=== PATIENT | female | born 1990 | race Hispanic/Latino ===

== ENCOUNTER 2017-09-03 19:20 | Emergency (ER) | payer BC, MEDICAID ==
[2017-09-03 19:37] VITALS: O2SAT 98
[2017-09-03] MEDS ORDERED: Dextrose 50% SYRINGE Inj (50 ml) ONE (19:41)
[2017-09-03] MEDS ORDERED: Dextrose 50% SYRINGE Inj (50 ml) IVP STA (19:48)
--- NOTE | 2017-09-03 19:51 | C.PDOC ---
History Of Present Illness 27 y/o female hx of seizure disorder presents to the ED c/o nausea, vomiting, diarrhea, since this morning. The patient states that "I drank a lot of alcohol last night".The patient had multiple clear vomiting,three episodes of watery bowel movements, and abdominal cramping. The patient notes having an aura concerned for breakthrough symptom. The patient has been complaint with seizure medications. The patient denies fever. NVD SINCE THIS MORNING. PS DRANK "ALOT" OF ALCOHOL LAST NIGHT. MULT CLEAR EMESIS , 3 EPISODES WATERY BM. +ABD CRAMPING. NO FEVER. PS HO SZ DO, FEELING AURA CONCERNED FOR BREAKTHROUGH SX. COMPLIANT W SZ MEDS. EXAM MILD DIST NONTOXIC HEENT ANICTERIC ABD SOFT NO R/G POOR TURGOR PSYCH CALM COOPERATIVE NO ACUTE INTOX NEURO INTACT AO3 NO FOCAL DEF REMAINDER NEG Time Seen by Provider: 09/03/17 19:35 Chief Complaint (Nursing): Medical Clearance History Per: Patient History/Exam Limitations: no limitations Onset/Duration Of Symptoms: Hrs Current Symptoms Are (Timing): Still Present Past Medical History Reviewed: Historical Data, Nursing Documentation, Vital Signs Vital Signs: Last Vital Signs Temp 98.0 F 09/03/17 19:34 Pulse 88 09/03/17 19:34 Resp 18 09/03/17 19:34 BP 106/66 09/03/17 19:34 Pulse Ox 98 09/03/17 23:44 - Medical History PMH: Seizures Surgical History: No Surg Hx Family History: States: Unknown Family Hx - Social History Hx Alcohol Use: Yes Hx Substance Use: No Review Of Systems Except As Marked, All Systems Reviewed And Found Negative. Constitutional: Negative for: Fever Cardiovascular: Negative for: Chest Pain Respiratory: Negative for: Cough, Shortness of Breath Gastrointestinal: Positive for: Nausea, Vomiting (multiple and clear ), Abdominal Pain (cramping), Diarrhea (3 episodes) Physical Exam - Physical Exam Appears: Non-toxic, Other (mild discomfort) Skin: Warm, Dry, Other (poor turgor) Head: Atraumatic, Normacephalic Eye(s): bilateral: Other (Anicteric ) Oral Mucosa: Moist Lips: Normal Appearing Neck: Supple Chest: Symmetrical Cardiovascular: Rhythm Regular Gastrointestinal/Abdominal: Soft, No Tenderness, No Guarding, No Rebound Extremity: Normal ROM, Capillary Refill (<2sec.) Neurological/Psych: Oriented x3, Normal Speech, Normal Cognition, Other (calm cooperative no acute intoxication and no focal deficits ) Gait: Steady ED Course And Treatment - Laboratory Results Result Diagrams: 09/03/17 19:50 09/03/17 19:50 Urine POC: Negative O2 Sat by Pulse Oximetry: 98 (RA) Progress Note: The patient was administered Blood Work, Zofran injection 4mg IVP once, Sodium Chloride 0.9% 1,500ml IV Supplies (Empties IV bag), Dextrose 50 % injection, 50 ml IVP, Dicyclomine (Bentyl), and POC Urine test STAT. The results for the exams are unremarkable. The patient is resting comfortably. The patient no longer feels abdominal cramping, nausea, and vomting. Upon reassessment, the patient is aferbrile and PO tolerant. The patient is advised to have a 1-2 day follow up with her PMD for further evaluation. Progress - Re-Evaluation Re-evaluation Note: 09/03/17 21:58 FEELS BETTER. TOLERATING PO WO DIFF. PT WISHES DC HOME 09/03/17 22:09 CALLED TO BEDSIDE BY RN, S/P BREAKTHROUGH SZ <1 MIN. VSS PT POSTICTAL. ATIVAN, REGLAN GIVEN 09/03/17 22:21 IMPROVED ALERTNESS BUT STILL PERSIST POSTICTAL STATE. VSS 09/04/17 00:00 PERSIST MILD CONFUSION, DOESNT REMEMBER HAVING SZ. - Data Reviewed Data Reviewed: Lab, Old records - Critical Care Citical Care: Excluding Proc Time Critical Care Time: 120 minutes Disposition Counseled Patient/Family Regarding: Studies Performed, Diagnosis, Need For Followup, Rx Given - Disposition Referrals: YOUR,PMD [Other] Disposition Time: 00:00 Condition: STABLE Prescriptions: Ondansetron [Zofran Odt] 4 mg PO TID PRN #9 odt PRN Reason: Nausea/Vomiting Instructions: Acute Nausea and Vomiting (ED) Forms: [facility] (Georgian) - Clinical Impression Clinical Impression: Breakthrough seizure, Vomiting - Scribe Statement The provider has reviewed the documentation as recorded by the Kuldeepibalbino Veras All medical record entries made by the Scribe were at my direction and personally dictated by me. I have reviewed the chart and agree that the record accurately reflects my personal performance of the history, physical exam, medical decision making, and the department course for this patient. I have also personally directed, reviewed, and agree with the discharge instructions and disposition. Physician Patient Turnover Patient Signed Over To: Néstor James Handoff Comments: CARMEN REEVAL, DISPO
[2017-09-03] MEDS ORDERED: Sodium Chloride 0.9% 500 ML IV ONE (19:59)
[2017-09-03] MEDS ORDERED: Sodium Chloride 0.9% 1,000 ML ONE (19:59)
[2017-09-03 20:03] LABS: BASO % 0.2 % (0.0-2.0); HEMATOCRIT 43.1 % (34.0-47.0); LYMPH # 0.6 K/uL (1.0-4.3); LYMPH % 4.3 % (20.0-40.0); MEAN CELL VOLUME 90.6 fL (81.0-99.0); MEAN CORPUSCULAR HEMOGLOBIN 30.2 pg (27.0-31.0); MEAN CORPUSCULAR HGB CONC 33.3 g/dL (33.0-37.0); MEAN PLATELET VOLUME 8.1 fL (7.2-11.7); MONO # 0.3 K/uL (0.0-0.8); MONO % 1.9 % (0.0-10.0); PLATELET COUNT 244 K/uL (130-400); RED CELL DISTRIBUTION WIDTH 12.2 % (11.5-14.5); WHITE BLOOD COUNT 12.9 K/uL (4.8-10.8)
[2017-09-03 20:13] LABS: CHLORIDE 102 mmol/L (98-107); POTASSIUM 3.9 mmol/L (3.6-5.2); SODIUM 139 mmol/L (132-148)
[2017-09-03 20:15] LABS: GFR AFRICAN-AMERICAN > 60
[2017-09-03 20:16] LABS: ALB/GLOB RATIO 1.2 (1.0-2.1); ALKALINE PHOSPHATASE 86 U/L (38-126); ALT/SGPT 40 U/L (9-52); AST/SGOT 38 U/L (14-36); BILIRUBIN,TOTAL 0.8 mg/dL (0.2-1.3); BLOOD UREA NITROGEN 16 mg/dL (7-17); CALCIUM 9.8 mg/dl (8.6-10.4); CARBON DIOXIDE 20 mmol/L (22-30); GLUCOSE,RANDOM 66 mg/dL (65-105); TOTAL PROTEIN 8.8 g/dL (6.3-8.3)
[2017-09-03 20:17] LABS: ALCOHOL SERUM < 10 mg/dl (0-10)
[2017-09-03 21:27] LABS: NEUTROPHIL 94 % (50-75); TOTAL CELLS COUNTED 100
[2017-09-03 23:57] VITALS: BP 103/51; PULSE 99; RESP 17; TEMP 98
== END 2017-09-04 00:25 | disposition home or self-care (01) ==
LOC: C.ER 19:20
DX: G40.909 Epilepsy, unspecified, not intractable, without status epilepticus (principal); R11.10 Vomiting, unspecified
CPT/HCPCS: 80053; 80320; 82948; 85025; 96361; 96372; 96374; 96375; 99291; 99292; J0500; J2060; J2405; J2765; J7040

== ENCOUNTER 2017-12-05 22:25 | Emergency (ER) | payer MEDICAID ==
[2017-12-05 23:12] LABS: BASO % 0.4 % (0.0-2.0); EOS # 0.4 K/uL (0.0-0.7); EOS % 6.5 % (0.0-4.0); LYMPH # 1.5 K/uL (1.0-4.3); LYMPH % 22.2 % (20.0-40.0); MEAN CELL VOLUME 92.2 fL (81.0-99.0); MEAN CORPUSCULAR HEMOGLOBIN 31.2 pg (27.0-31.0); MEAN CORPUSCULAR HGB CONC 33.8 g/dL (33.0-37.0); MONO # 0.5 K/uL (0.0-0.8); NEUT # 4.2 K/uL (1.8-7.0); NEUT % 62.9 % (50.0-75.0); RBC 3.86 Mil/uL (3.80-5.20); RED CELL DISTRIBUTION WIDTH 13.2 % (11.5-14.5); WHITE BLOOD COUNT 6.8 K/uL (4.8-10.8)
[2017-12-05 23:26] LABS: ALB/GLOB RATIO 1.4 (1.0-2.1); ALBUMIN 3.7 g/dL (3.5-5.0); ALT/SGPT 33 U/L (9-52); AST/SGOT 27 U/L (14-36); BLOOD UREA NITROGEN 9 mg/dL (7-17); CALCIUM 8.5 mg/dl (8.6-10.4); GFR AFRICAN-AMERICAN > 60; GFR NON-AFRICAN AMERICAN > 60
--- NOTE | 2017-12-05 23:43 | C.PDOC ---
History Of Present Illness 27 year old female with a Hx of seizure disorder presents to the ER after having a tonic clonic seizure witnessed by her boyfriend. Patient states she takes keppra twice a day and lamictal daily, she reports good compliance with her medications but notes she missed a dose today. Patient reports she feels okay know; denies any further seizure activity, incontinence, or tongue bitting. Time Seen by Provider: 12/05/17 22:30 Chief Complaint (Nursing): Seizure History Per: Patient History/Exam Limitations: no limitations Recent Seizure Activity Began: Just Before Arrival Number Of Seizures: One Length Of Seizures (Duration): Unknown Quality Of Seizure: Generalized Precipitating Factor(s): Missed Dose Of Anti-seizure Medication Post-ictal Period: No Recent travel outside of the [place]: No Past Medical History Reviewed: Historical Data, Nursing Documentation, Vital Signs Vital Signs: Last Vital Signs Temp 98.1 F 12/05/17 22:47 Pulse 99 H 12/05/17 22:33 Resp 18 12/05/17 22:33 BP 122/75 12/05/17 22:33 Pulse Ox 97 12/05/17 23:54 - Medical History PMH: Seizures Family History: States: Unknown Family Hx - Social History Hx Alcohol Use: Yes Hx Substance Use: No - Immunization History Hx Tetanus Toxoid Vaccination: No Hx Influenza Vaccination: No Hx Pneumococcal Vaccination: No Review Of Systems Constitutional: Negative for: Fever, Chills Cardiovascular: Negative for: Chest Pain, Palpitations Respiratory: Negative for: Shortness of Breath Gastrointestinal: Negative for: Nausea, Vomiting, Abdominal Pain Neurological: Positive for: Seizures. Negative for: Headache, Dizziness Physical Exam - Physical Exam Appears: Non-toxic, No Acute Distress Skin: Normal Color, Warm, Dry Head: Atraumatic, Normacephalic Eye(s): bilateral: Normal Inspection, PERRL, EOMI Ear(s): Bilateral: Normal Oral Mucosa: Moist Tongue: Normal Appearing, No Bite Neck: Normal, No Midline Cervical Tenderness, No Paracervical Tenderness, Supple Chest: Symmetrical, No Tenderness Cardiovascular: Rhythm Regular Respiratory: Normal Breath Sounds, No Rales, No Rhonchi, No Wheezing Gastrointestinal/Abdominal: Soft, No Tenderness Extremity: Normal ROM (x4) Neurological/Psych: Oriented x3, Normal Speech, Other (No focal deficits) ED Course And Treatment - Laboratory Results Result Diagrams: 12/05/17 23:08 12/05/17 23:08 O2 Sat by Pulse Oximetry: 97 (Room air) Pulse Ox Interpretation: Normal Medical Decision Making Medical Decision Making: Impression: Seizure disorder Plan: * Blood work * Lamictal * Marla Patient received extra dose of seizure medication, reports she feels better and feels safe for discharge. Advised to continue with her seizure medications at home and follow up with PMD. Disposition Counseled Patient/Family Regarding: Studies Performed, Diagnosis, Need For Followup - Disposition Disposition: HOME/ ROUTINE Disposition Time: 23:53 Condition: STABLE Additional Instructions: follow up with doctor in 2 days call to make an appointment take medications as prescribed return to hospital if symptoms worsens or progress Instructions: Epilepsy (ED) Forms: [facility] (Sao T[place]an), General Discharge Instructions - Clinical Impression Clinical Impression: Seizure - Scribe Statement The provider has reviewed the documentation as recorded by the Scribe Ronnie Gutierres All medical record entries made by the Scribe were at my direction and personally dictated by me. I have reviewed the chart and agree that the record accurately reflects my personal performance of the history, physical exam, medical decision making, and the department course for this patient. I have also personally directed, reviewed, and agree with the discharge instructions and disposition.
[2017-12-06 00:24] VITALS: BP 111/71; PULSE 80; RESP 22; TEMP 98
[2017-12-06 16:09] VITALS: O2SAT 97
== END 2017-12-06 00:20 | disposition home or self-care (01) ==
LOC: C.ER 22:25
DX: R56.9 Unspecified convulsions (principal)
CPT/HCPCS: 80053; 82948; 85025; 96374; 99285; J2405

== ENCOUNTER 2018-05-12 23:55 | Emergency (ER) | payer BC, MEDICAID ==
[2018-05-13] MEDS ORDERED: levETIRAcetam 100 mg/ml (5ml) Oral Syringe PO STA (00:01)
--- NOTE | 2018-05-13 00:13 | C.PDOC ---
History Of Present Illness 27 year old female with PMHx of seizures for the past 5 years presents to the ED for evaluation. Patient reports she takes lamictal and kepra. Patient states she did not take her evening dose of medications. Patient was in a cab with her daughter when she had a witnessed seizure. EMS were called and patient awoke in the ambulance and did not recall the events. Patient denies tongue biting, loss fecal and urinary. Patient feels at baseline now denies any pain. Chief Complaint (Nursing): Seizure History Per: Patient, EMS Recent Seizure Activity Began: Just Before Arrival Number Of Seizures: One Length Of Seizures (Duration): Unknown Quality Of Seizure: Generalized Precipitating Factor(s): Missed Dose Of Anti-seizure Medication Post-ictal Period: No Severity: None Recent travel outside of the [place]: No Additional History Per: Patient Past Medical History Reviewed: Historical Data, Nursing Documentation, Vital Signs Vital Signs: Last Vital Signs Temp 98.2 F 05/13/18 02:25 Pulse 75 05/13/18 02:25 Resp 20 05/13/18 02:25 BP 96/53 L 05/13/18 02:25 Pulse Ox 100 05/13/18 02:25 - Medical History PMH: Seizures Surgical History: No Surg Hx Family History: States: Unknown Family Hx - Social History Hx Alcohol Use: Yes Hx Substance Use: Yes - Immunization History Hx Tetanus Toxoid Vaccination: No Hx Influenza Vaccination: No Hx Pneumococcal Vaccination: No Review Of Systems Constitutional: Negative for: Fever, Chills Cardiovascular: Negative for: Chest Pain, Palpitations Respiratory: Negative for: Cough, Shortness of Breath Gastrointestinal: Negative for: Nausea, Vomiting Skin: Negative for: Rash Neurological: Negative for: Headache, Dizziness Physical Exam - Physical Exam Appears: Non-toxic, No Acute Distress Skin: Normal Color, Warm, Dry Head: Atraumatic, Normacephalic Eye(s): bilateral: Normal Inspection, PERRL, EOMI Oral Mucosa: Moist Neck: Normal ROM, Supple Chest: Symmetrical Cardiovascular: Rhythm Regular Respiratory: Normal Breath Sounds, No Rales, No Rhonchi, No Wheezing Gastrointestinal/Abdominal: Soft, No Tenderness, No Guarding, No Rebound Extremity: Normal ROM, No Tenderness, No Swelling Neurological/Psych: Oriented x3, Normal Speech Gait: Steady ED Course And Treatment - Laboratory Results Result Diagrams: 05/13/18 00:21 05/13/18 00:21 O2 Sat by Pulse Oximetry: 99 (ON RA) Pulse Ox Interpretation: Normal Medical Decision Making Medical Decision Making: Impression: epilepsy Plan: * Labs * Lamictal 150 mg PO * Keppra 1,500 mg PO Disposition - Disposition Referrals: [facility] [Outside] Disposition: HOME/ ROUTINE Disposition Time: 04:52 Condition: FAIR Instructions: Seizures Forms: [facility] (Croatian) Print Language: ARMENIAN - Clinical Impression Clinical Impression: Generalized-onset seizures - Scribe Statement The provider has reviewed the documentation as recorded by the Scribe Matias Duran All medical record entries made by the Scribe were at my direction and personally dictated by me. I have reviewed the chart and agree that the record accurately reflects my personal performance of the history, physical exam, medical decision making, and the department course for this patient. I have also personally directed, reviewed, and agree with the discharge instructions and disposition.
[2018-05-13 00:25] LABS: BASO % 0.3 % (0.0-2.0); EOS # 0.4 K/uL (0.0-0.7); EOS % 7.1 % (0.0-4.0); HEMOGLOBIN 11.5 g/dL (11.0-16.0); LYMPH # 1.3 K/uL (1.0-4.3); LYMPH % 23.9 % (20.0-40.0); MEAN CORPUSCULAR HEMOGLOBIN 31.1 pg (27.0-31.0); MEAN CORPUSCULAR HGB CONC 34.2 g/dL (33.0-37.0); MEAN PLATELET VOLUME 7.4 fL (7.2-11.7); MONO # 0.5 K/uL (0.0-0.8); MONO % 8.7 % (0.0-10.0); NEUT # 3.3 K/uL (1.8-7.0); RBC 3.7 Mil/uL (3.80-5.20); RED CELL DISTRIBUTION WIDTH 12.6 % (11.5-14.5); WHITE BLOOD COUNT 5.4 K/uL (4.8-10.8)
[2018-05-13 00:36] LABS: ALB/GLOB RATIO 1.6 (1.0-2.1); ALBUMIN 4.3 g/dL (3.5-5.0); ALT/SGPT 38 U/L (9-52); AST/SGOT 29 U/L (14-36); BLOOD UREA NITROGEN 16 mg/dL (7-17); CALCIUM 8.9 mg/dl (8.6-10.4); GFR AFRICAN-AMERICAN > 60; GFR NON-AFRICAN AMERICAN > 60
[2018-05-13 02:26] VITALS: BP 96/53; PULSE 75; RESP 20; TEMP 98.2
[2018-05-13 04:52] VITALS: O2SAT 99
== END 2018-05-13 02:26 | disposition home or self-care (01) ==
LOC: C.ER 23:55
DX: G40.409 Other generalized epilepsy and epileptic syndromes, not intractable, without status epilepticus (principal)